=== PATIENT | female | born 1990 | race African-American/Black ===

== ENCOUNTER → 2016-08-30 | Outpatient (CLI) | payer MEDICAID ==
[~2016-08-30] MED LIST: ACYC-113 PO; FERR325T10 PO; HYDR-3240 PO; IBUP-1222 PO; PREN1TAB60 PO
== END | disposition home or self-care (01) ==
LOC: CFH 14:37
PROVIDERS: ATTEND Family Medicine
DX: N64.4 Mastodynia (principal)